=== PATIENT | female | born 1970 | race Caucasian/White ===

== ENCOUNTER 2018-12-10 10:28 | Emergency (ER) | payer MEDICARE, OTHER ==
--- NOTE | 2018-12-10 11:07 | ER Document Report ---
ED Psych Disorder / Suicide <ASHLEY STEVENSON - Last Filed: 12/10/18 19:04> <MATT RODRIGUEZ - Last Filed: 12/11/18 12:02> <STANFORD YBARRA - Last Filed: 12/11/18 12:35> - General Chief Complaint: Psych Problem Stated Complaint: PSYCH EVAL Time Seen by Provider: 12/10/18 10:43 Primary Care Provider: [facility] [Outside] - Follow up as needed [facility] [Outside] - Follow up in 1 week Notes: Patient brought in by EMS after her daughter called him because of patient's hyper state and apparent confusion. Patient is extremely manic talking very fast. She says that she was diagnosed with stage IV cancer of the uterus or some pelvic organs and had surgery in December 2012. She says that you are never cured of stage IV cancer, but she is living and well at this time. Care was rendered in [place]. In the process of getting the patient's history, she continues to slip off and to discussion of topics not thus addressed and rambles on very fast. In the process of getting her history, patient says that she smoked some meth this morning. She says that she has anxiety and depression but no other mental illnesses. Says that she is on Celexa, Xanax, and Adderall, which she takes as needed. No other medical problems. (ASHLEY STEVENSON) - Related Data Allergies/Adverse Reactions: No Known Allergies Allergy (Verified 12/11/18 09:43) Past Medical History - Social History Smoking Status: Current Every Day Smoker Drug Abuse: Methamphetamine Family History: Reviewed & Not Pertinent Psychiatric Medical History: Reports: Hx Anxiety, Hx Depression Past Surgical History: Reports: Hx Hysterectomy <ASHLEY STEVENSON - Last Filed: 12/10/18 19:04> Review of Systems <ASHLEY STEVENSON - Last Filed: 12/10/18 19:04> - Review of Systems Notes: CONSTITUTIONAL : Denies fever. CARDIOVASCULAR: Denies chest pain. RESPIRATORY: Denies cough, chest congestion, or shortness of breath. GASTROINTESTINAL: Denies abdominal pain or nausea, vomiting, or diarrhea. GENITOURINARY: Denies difficulty or painful urinating, urinary frequency, blood in urine. (ASHLEY STEVENSON) Physical Exam - Vital signs Interpretation: Tachycardic - Slightly tachycardia <ASHLEY STEVENSON - Last Filed: 12/10/18 19:04> - Vital signs Vitals: Temp Pulse Resp BP Pulse Ox 98.6 F 113 H 20 133/95 H 89 L 12/10/18 11:19 12/10/18 11:19 12/10/18 11:19 12/10/18 11:19 12/10/18 11:19 Notes: PHYSICAL EXAMINATION: GENERAL: Well-appearing, no acute distress. HEAD: Atraumatic, normocephalic. NECK: Normal range of motion, supple. LUNGS: Breath sounds clear and equal bilaterally. HEART: Regular rate and rhythm without murmurs heard. ABDOMEN: Soft, nontender. No guarding or rebound or masses felt. (ASHLEY STEVENSON) Course - Laboratory Result Diagrams: 12/10/18 11:00 12/10/18 11:00 - EKG Interpretation by Ia EKG shows normal: Sinus rhythm Rate: Normal - Heart rate 100. On EKG <ASHLEY STEVENSON - Last Filed: 12/10/18 19:04> - Laboratory Result Diagrams: 12/10/18 11:00 12/10/18 11:00 <MATT RODRIGUEZ - Last Filed: 12/11/18 12:02> - Laboratory Result Diagrams: 12/10/18 11:00 12/10/18 11:00 <STANFORD YBARRA - Last Filed: 12/11/18 12:35> - Re-evaluation Re-evalutation: 12/10/18 19:09 Patient was given Haldol 10 mg p.o. to settle her down. Mental health will evaluate patient. (ASHLEY STEVENSON) - Vital Signs Vital signs: Temp Pulse Resp BP Pulse Ox 97.5 F 84 18 113/55 L 100 12/11/18 05:32 12/11/18 05:32 12/11/18 09:00 12/11/18 05:32 12/11/18 05:32 - Laboratory Laboratory results interpreted by mn: 12/10/18 12/10/18 12/10/18 11:00 11:00 13:00 WBC 13.4 H Hgb 11.9 L Hct 35.3 L RDW 15.4 H Absolute Neutrophils 9.8 H Carbon Dioxide 18 L BUN 25 H Est GFR (Non-Af Amer) 57 L AST 46 H Urine Ketones 80 H Urine Blood MODERATE H Ur Leukocyte Esterase TRACE H Salicylates < 1.0 L Acetaminophen < 10 L - EKG Interpretation by Me Additional EKG results interpreted by me: 12/10/18 19:10 Borderline QT prolongation, according to the computer reading. (ASHLEY STEVENSON) Discharge <ASHLEY STEVENSON - Last Filed: 12/10/18 19:04> <MATT RODRIGUEZ - Last Filed: 12/11/18 12:02> <STANFORD YBARRA - Last Filed: 12/11/18 12:35> - Discharge Clinical Impression: Manic psychosis, Methamphetamine intoxication, History of bipolar disorder, Grief Condition: Stable Disposition: HOME, SELF-CARE Additional Instructions: You have been evaluated by both medical and psychiatric providers while in the emergency department. You have been cleared from both acute medical and psychiatric issues. It is felt your jovanni was related to your reported use of methamphetamine yesterday. Medication adjustments have been made to address mood instability often related to bipolar disorder, as well as the fact you are grieving. You have been instructed to initiate mental health services with a local provider that is readily available if you plan on staying in the area (you reported seeing a psychiatrist in [place]). AMPHETAMINE / METHAMPHETAMINE ABUSE: Amphetamines are addicting stimulants. Amphetamines overstimulate the nervous system and give a false feeling of power and mastery. These drugs may be ob tained as prescription pills for weight loss, narcolepsy, or attention-deficit disorder. More often they're bought as an illegal street drug, methamphetamine (crank, crystal, speed). Using amphetamines repeatedly can lead to serious medical problems including malnutrition, severe depression, and paranoia. It can take increasing amounts to feel good. Eventually, there will be a "burn out." When you go off amphetamines there is a period of depression that may last for weeks or even months. High doses of amphetamines can cause seizures, confusion, hallucinations, delusions, high blood pressure, muscle damage, heart damage, or sudden . Many times these deadly complications occur even with "normal" doses. Injection of amphetamines is risky for developing abscesses, endocarditis (heart infection), pneumonia, and AIDS. Withdrawal from amphetamines often causes anxiety, depression, and drug cravings. Some users become paranoid and psychotic. There may be cramps, nausea, and vomiting. Many treatment programs are available, but you must make the decision to quit. Medication can be prescribed to control the symptoms of amphetamine toxicity (beta blockers or benzodiazepines). Withdrawal symptoms may require tranquilizers. Depression (Grief) Your evaluation reveals that you have mental depression. While symptoms may be vague, they often include disturbance of sleep, fatigue, loss of appetite, and general loss of interest in life. While depression may be a side effect of drugs, or a reaction to a major change in your life, many cases have no known cause. If depression is acute, and related to a major loss in your life, you can expect it to clear completely with time. If you have been depressed a long time, are prone to repeated bouts of depression or low mood, or have been thinking of suicide, get help. Depression can be treated with anti-depressant medication and counselling. Long-term depression will often take a few weeks to clear, even with appropriate medication. Follow-up care is important. Contact your physician, the hospital emergency center, crisis line, or your counsellor if you are losing control or having self-destructive thoughts. Bipolar Disorder Bipolar disorder is also called manic-depressive disorder. Depression alternates with brain hyperactivity called jovanni. Each phase lasts from several days to a few weeks. We don't know exactly what causes bipolar disorder, but it's treatable. During the "manic phase," you may feel elated and energetic. You may have racing thoughts, rapid speech, increased activity, and grandiose ideas. During this time, you may not realize how poor your judgement is. Inappropriate spending, drug abuse, excessive alcohol use, marriage problems, and irresponsible sexual behavior are common during the manic phase. During the "depressive phase," you might feel depressed, guilty, worthless, fatigued, and unable to concentrate. You might have thoughts of suicide. Good treatments are available for bipolar disorder. [place] is a classic drug for bipolar disorder, and is still often useful. If the manic phase is very mild, an antidepressant alone can be prescribed. If the manic phase is very severe, an antipsychotic medicine (such as Haldol) may be needed. The treatment must be matched to your symptoms, so it's important to work closely with your psychiatric care provider. Contact your physician, the hospital emergency center, crisis line, or your counsellor if you are losing control or having self-destructive thoughts. Follow Up Plan: You have been started on and provided a prescription for Zyprexa 2.5MG in the morning (for mood stabilization and impulse control), Zyprexa 5MG at night (for mood stabilization/impulse control/higher dose can aid with sleep) and Cogentin 1MG daily (used with the Zyprexa to curb any possible tremors). You should take these medication as prescribed. You should discontinue any other psychiatric medications you have at home. You have been provided the outpatient mental health resource sheet to initiate mental health services with a local provider and have been encouraged to do so. [facility] will see you with or without insurance, address mental health and substance abuse and you can do walk ins Tuesday through Tuesday [phone]. Also highlighted was the mobile crisis number for crisis, talk therapy and linkage to other supports.services. If your symptoms persist or worsen contact your physician, utilize mobile crisis or return to the emergency department. Prescriptions: Benztropine Mesylate [Cogentin 1 mg Tablet] 1 mg PO DAILY #15 tablet Olanzapine [Zyprexa 2.5 Mg Tablet] 2.5 mg PO BID #45 tablet Referrals: [facility] Crisis Team [Outside] - Follow up as needed [facility] [Outside] - Follow up in 1 week
[2018-12-10] MEDS ORDERED: HALOPERIDOL 5 MG TABLET PO ONE (11:08)
[2018-12-10] MEDS ORDERED: BENZTROPINE MESYLATE 1 MG TABLET PO ONE (11:08)
[2018-12-10 11:34] LABS: ABSOLUTE BASOPHILS # (AUTO) 0.1 10^3/uL (0.0-0.2); ABSOLUTE LYMPHOCYTES (AUTO) 2.4 10^3/uL (0.5-4.7); ABSOLUTE MONOCYTES (AUTO) 1.1 10^3/uL (0.1-1.4); ABSOLUTE NEUT (AUTO) 9.8 10^3/uL (1.7-8.2); BASOPHILS % (AUTO) 0.4 % (0-2); EOSINOPHILS % (AUTO) 0.3 % (0-6); HEMATOCRIT 35.3 % (36.0-47.0); HEMOGLOBIN 11.9 g/dL (12.0-15.5); LYMPHOCYTES % (AUTO) 17.9 % (13-45); MEAN CORPUSCULAR HEMOGLOBIN 27.9 pg (27.0-33.4); MEAN CORPUSCULAR HGB CONC 33.8 g/dL (32.0-36.0); MEAN CORPUSCULAR VOLUME 83 fl (80-97); MONOCYTES % (AUTO) 8.5 % (3-13); PLATELET COUNT 278 10^3/uL (150-450); RED BLOOD COUNT 4.28 10^6/uL (3.72-5.28); RED CELL DISTRIBUTION WIDTH 15.4 % (11.5-14.0); SEGMENTED NEUTROPHILS % (AUTO) 72.9 % (42-78); TOTAL CELLS COUNTED % (AUTO) 100 %; WHITE BLOOD COUNT 13.4 10^3/uL (4.0-10.5)
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
[2018-12-10 11:54] LABS: ACETAMINOPHEN < 10 ug/mL (10-30); ALANINE AMINOTRANSFERASE 39 U/L (9-52); ALBUMIN 4.8 g/dL (3.5-5.0); ALCOHOL < 10 mg/dL (NONE DETECTED); ALKALINE PHOSPHATASE 104 U/L (38-126); ANION GAP 18 (5-19); ASPARTATE AMINO TRANSFERASE 46 U/L (14-36); BILIRUBIN,DIRECT 0.3 mg/dL (0.0-0.4); BILIRUBIN,TOTAL 1.1 mg/dL (0.2-1.3); BLOOD UREA NITROGEN 25 mg/dL (7-20); CALCIUM 9.9 mg/dL (8.4-10.2); CARBON DIOXIDE 18 mmol/L (22-30); CHLORIDE 105 mmol/L (98-107); GLUCOSE 105 mg/dL (75-110); SALICYLATE < 1.0 mg/dL (2.0-20.0)
[2018-12-10 14:10] LABS: APPEARANCE,URINE SLIGHTLY-CLOUDY; BILIRUBIN,URINE NEGATIVE (NEGATIVE); COLOR,URINE YELLOW; GLUCOSE, URINE NEGATIVE (NEGATIVE); KETONES,URINE 80 mg/dL (NEGATIVE); LEUKOCYTE ESTERASE,URINE TRACE (NEGATIVE); NITRITE,URINE NEGATIVE (NEGATIVE); PROTEIN,URINE NEGATIVE (NEGATIVE); URINE SPECIFIC GRAVITY 1.025; UROBILINOGEN,URINE NEGATIVE mg/dL (<2.0)
[2018-12-10 14:23] LABS: URINE BARBITURATES SCREEN NEGATIVE; URINE BENZODIAZEPINES SCREEN UNCONFIRMED POSITIVE; URINE COCAINE SCREEN NEGATIVE; URINE MARIJUANA (THC) SCREEN UNCONFIRMED POSITIVE; URINE METHADONE SCREEN NEGATIVE; URINE PHENCYCLIDINE SCREEN NEGATIVE
--- NOTE | 2018-12-10 16:25 | EKG REPORT ---
SEVERITY:- BORDERLINE ECG - SINUS TACHYCARDIA BORDERLINE PROLONGED QT INTERVAL : Confirmed by: John Rashid 10-Dec-2018 16:24:45
[2018-12-11] MEDS ORDERED: NORMAL SALINE 1000 ML 1,000 ML IV ONE (09:16)
--- NOTE | 2018-12-11 09:17 | ER Document Report ---
Doctor's Note Notes: 12/11/18 09:16 48-year-old female presenting with manic-like episodes with a history of bipolar and ADHD. Psychiatric team would like to start the patient on Zyprexa and Cogentin. Patient does appear dehydrated from the urine analysis. No symptoms of urinary tract infection. Positive drug screen. 12/11/18 12:32 Fluids have been provided. Patient denies any dysuria or abdominal pain. No fevers or vomiting. Patient is oriented x4 and has no pressured speech or jovanni that is appreciated. Patient denies any suicidal homicidal ideations. Patient admits to using methamphetamine over the last 2 days. She states she will no longer use the substance. We will start the patient on Zyprexa and Cogentin and discharge the patient home with strict return precautions and follow-up as an outpatient. We will call the patient's daughter to make sure she is comfortable with this plan according to our behavioral health/psychology team.
[2018-12-11] MEDS ORDERED: OLANZAPINE 2.5 MG TABLET PO SCH (09:30)
[2018-12-11] MEDS ORDERED: BENZTROPINE MESYLATE 1 MG TABLET PO SCH (09:30)
[2018-12-11 15:49] VITALS: BP 117/83
[2018-12-11] MEDS ORDERED: OLANZAPINE 5 MG TABLET PO SCH (22:00)
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
== END 2018-12-11 16:01 | disposition home or self-care (01) ==
LOC: ER 10:28
DX: F30.2 Manic episode, severe with psychotic symptoms (principal); F15.129 Other stimulant abuse with intoxication, unspecified; F43.21 Adjustment disorder with depressed mood; F17.200 Nicotine dependence, unspecified, uncomplicated; Z90.710 Acquired absence of both cervix and uterus
CPT/HCPCS: 93005; 99285; 96360; 36415; 80307 ×4; 85025; 80053; 81001; 93010; A9270 ×4; J7030; J3490